=== PATIENT | male | born 1985 | race Caucasian/White ===

== ENCOUNTER 2021-01-10 10:31 | Outpatient (CLI) | payer MEDICAID | END 2021-01-10 10:32 | disposition critical access hospital (66) | LOC: EMS 10:31 | DX: S61.412A Laceration without foreign body of left hand, initial encounter (principal); W29.3XXA Contact with powered garden and outdoor hand tools and machinery, initial encounter | CPT/HCPCS: A0425; A0427; A0999 ==

== ENCOUNTER 2021-01-10 10:52 | Emergency (ER) | payer MEDICAID ==
[2021-01-10] MEDS ORDERED: LIDOCAINE 1% 2 ML VIAL SUBQ STA (11:34)
[2021-01-10] MEDS ORDERED: TETANUS/DIPHTHERIA/PERTUSSIS 0.5 ML SYRINGE IM ONE (11:34)
[2021-01-10] MEDS ORDERED: BUPIVACAINE 0.5% PF 10 ML VIAL SUBQ STA (11:35)
--- NOTE | 2021-01-10 11:38 | ED Physician Documentation ---
PD HPI UPPER EXT INJURY - Stated complaint Stated Complaint: THUMB LACERATION - Chief complaint Chief Complaint: Trauma Ext - History obtained from History obtained from: Patient - History of Present Illness Location: Left, Other (thumb) Type of injury: Laceration Improved by: Nothing Worsened by: Moving, Palpating Associated symptoms: Weakness, Numbness, Tingling, Swelling Contributing factors: Work related - Additonal information Additional information: 35 yo M with no significant pmh BIB EMS after sustaining deep left thumb laceration from chainsaw injury. 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 Denies any other injuries. He is unsure of last td but declines td today. Review of Systems Ten Systems: 10 systems reviewed and negative Skin: reports: Laceration (s) (left thumb) PD PAST MEDICAL HISTORY - Past Medical History Past Medical History: No - Present Medications Home Medications: Ambulatory Orders Medication Instructions Recorded Confirmed HYDROcod/ACETAM 5/325 [Centuria 5/325] 1 - 2 tablet PO Q6H PRN #14 tablet 01/10/21 Ibuprofen [Motrin] 800 mg PO Q8H PRN #30 tablet 01/10/21 cephALEXin [Keflex] 500 mg PO Q6H #28 01/10/21 - Allergies Allergies/Adverse Reactions: Allergies Allergy/AdvReac Type Severity Reaction Status Date / Time No Known Drug Allergies Allergy Verified 01/10/21 11:05 PD ED PE NORMAL - Vitals Vital signs reviewed: Yes - General General: Alert and oriented X 3, No acute distress, Well developed/nourished - HEENT HEENT: Atraumatic, Moist mucous membranes, Pharynx benign - Neck Neck: Supple, no meningeal sign, No JVD - Cardiac Cardiac: RRR, No murmur - Respiratory Respiratory: No respiratory distress, Clear bilaterally - Abdomen Abdomen: Normal bowel sounds, Soft, Non tender, Non distended - Derm Derm: Other (Deep laceration dorsum of left thumb over MCP joint approx 5cm long and about 1cm gaping width. There is obvious tendon lacerations suspect of the extensor and abductor tendons.) - Extremities Extremities: Other (decreased sensation of left distal thumb. thumb warm w/ nl cap refill. He is able to flex slightly, unable to extend or abduct the thumb. ). No: No deformity (left thumb deformity, tenderness, and decreased ROM), No tenderness to palpate, Normal ROM s pain - Neuro Neuro: Alert and oriented X 3, No motor deficit (other than distal left thumb), No sensory deficit (other than distal left thumb), Normal speech Eye Opening: Spontaneous Motor: Obeys Commands Verbal: Oriented GCS Score: 15 - Psych Psych: Normal mood, Normal affect Results - Vitals Vitals: Vital Signs - 24 hr 01/10/21 01/10/21 01/10/21 11:01 11:19 13:20 Temperature 36.2 C L Heart Rate 79 79 78 Respiratory 16 14 14 Rate Blood Pressure 115/70 102/62 130/71 O2 Saturation 95 96 99 Oxygen O2 Source Room air PD MEDICAL DECISION MAKING - ED course Complexity details: reviewed results, re-evaluated patient, d/w patient ED course: This is a 35 yo right handed male who sustained a deep laceration of the left thumb resulting in an open phalanx fracture and tendon laceration. After informed verbal consent obtained I did a digital block of the thumb w/ 6ml of 1% lidocaine plain and 4ml of marcaine with excellent results. I then irrigated the site thoroughly w/ normal saline. There were visible ends of tendons, likely extensor and abductor. Bone was visible. I then closed the wound loosely w/ two 4.0 vicryl deep sutures and 9 nylon 4.0 sutures with good wound approximation. A dressing was placed on the wound and a thumb spica splint applied. I then tried to arrange for a follow up appt w/ ortho/hand at several hand specialists in [place], [place], and [place]. A referral from PCP was required from all locations as this was not a direct transfer. I spoke w/ our [facility] and [place] and we do not do outpt referrals from this ED. The patient does not have a PCP but does sometimes go to a primary care walk-in clinic in [place] therefore plans to go to the clinic today or tomorrow to obtain referral for hand surgery follow up. He was provided w/ CD of his imaging. He was advised that he would need follow up for likely surgical repair of the tendon lacerations in order to restore function to his thumb. He also was advised he had an open fracture which places him at risk of infection. He was given 1gm ceftriaxone IV here and will be discharged w/ keflex x 7 days. He was discharged w/ Centuria as well for pain not relieved by otc ibu/tylenol. Advised to keep elevated and use a cool compress to help w/ pain and swelling. The patient was advised to return to the ER if he developed redness or increased pain at the time or if he was not able to obtain fup w/ hand specialist within 2-3 days. Pt declined his tetanus booster. Departure - Departure Disposition: 01 Home, Self Care Clinical Impression: Open fracture of left thumb, Laceration of thumb, left, with tendon involvement Condition: Good Instructions: ED Laceration Hand, ED Fx Thumb Prescriptions: cephALEXin [Keflex] 500 mg PO Q6H #28 Ibuprofen [Motrin] 800 mg PO Q8H PRN #30 tablet PRN Reason: PAIN &/OR FEVER HYDROcod/ACETAM 5/325 [Centuria 5/325] 1 - 2 tablet PO Q6H PRN #14 tablet PRN Reason: Pain Comments: You have an open fracture of your left thumb and a tendon laceration of your left thumb. The tendon laceration needs to be repaired by a hand specialist within the next several days. We do not have a hand specialist here and I have called several locations, all of which need a referral from your primary care provider. Please call or walk-in to your primary care provider today or tomorrow in order to receive urgent referral to hand specialist. You received antibiotics to help prevent infection and you will need to take these for the next week. The laceration is loosely sutured and the sutures will need to come out within 7-10 days, though if you see a hand specialist they will repair this wound during surgery for your tendon laceration. It is very important to take antibiotics as prescribed and go to the ER right away if you develop hand/thumb redness or swelling or increased pain or fever. I have prescribed some narcotic pain medication for you. Please try ibuprofen first, but you may take the narcotic pain medication if needed. You should not drive or operate heavy machinery if you take this medication. This medication can be habit forming and you should not take it more often than prescribed. Discharge Date/Time: 01/10/21 15:23
--- NOTE | 2021-01-10 12:28 | XRAY Report ---
PROCEDURE: Hand 2 View LT INDICATIONS: deep thumb laceration by chainsaw TECHNIQUE: 2 views of the hand(s) acquired. COMPARISON: None FINDINGS: Bones: Cortical irregularity involving dorsal and lateral cortex of first distal phalangeal base cons istent with slightly minimally displaced comminuted fracture in this area. No other fracture or dislo cation. No suspicious bony lesions. Soft tissues: Laceration over dorsal and lateral aspect of left thumb is seen. No suspicious soft ti ssue calcifications. No gross radiopaque foreign body is seen. IMPRESSION: Comminuted and slightly displaced fracture involving dorsal and lateral aspect of first proximal phal angeal base. No other fracture or dislocation. Soft tissue laceration and base of left thumb. No radi opaque foreign body. Reviewed by: Tu Carpio MD on 01/10/2021 12:26 PM PDT Approved by: Tu Carpio MD on 01/10/2021 12:26 PM PDT Station ID: [id number]
[2021-01-10 13:20] VITALS: BP 130/71
[2021-01-10] MEDS ORDERED: cefTRIAXone 1 GM VIAL IVP STA (13:28)
[2021-01-10] MEDS ORDERED: MORPHINE 2 MG/ML CARPUJECT IVP STA (13:29)
== END 2021-01-10 15:23 | disposition home or self-care (01) ==
LOC: ED 10:52
DX: S62.512B Displaced fracture of proximal phalanx of left thumb, initial encounter for open fracture (principal); S64.32XA Injury of digital nerve of left thumb, initial encounter; W29.3XXA Contact with powered garden and outdoor hand tools and machinery, initial encounter; Y99.0 Civilian activity done for income or pay; Z23 Encounter for immunization
CPT/HCPCS: 12042; 64450

== ENCOUNTER 2022-04-01 21:47 | Emergency (ER) | payer MEDICAID ==
[2022-04-01 22:01] VITALS: BP 158/95
--- NOTE | 2022-04-02 00:50 | XRAY Report ---
PROCEDURE: Chest 1 View X-Ray INDICATIONS: cough TECHNIQUE: One view of the chest was acquired. COMPARISON: None. FINDINGS: Surgical changes and devices: None. Lungs and pleura: No pleural effusions or pneumothorax. Lungs are clear. Mediastinum: Mediastinal contours appear normal. Heart size is normal. Bones and chest wall: No suspicious bony lesions. Overlying soft tissues appear unremarkable. IMPRESSION: 1. No acute cardiopulmonary disease. Reviewed by: Balbir Josue MD on 04/02/2022 12:49 AM [facility] Approved by: Balbir Josue MD on 04/02/2022 12:49 AM [facility] Station ID: [id number]
--- NOTE | 2022-04-02 01:03 | ED Physician Documentation ---
History of Present Illness - Stated complaint Stated Complaint: Bubble in chest - Chief complaint Chief Complaint: General - History obtained from History obtained from: Patient - Additonal information Additional information: The patient comes to the emergency department chief complaint of an episode of feeling as though a bubble came up from his stomach into his throat and was choking him. The patient states that he had been having trouble with reflux every time he ate spicy food, so he took a hiatus from eating spicy food and symptoms got better. However, today went ahead and ate some spicy food and not long after, felt a sensation like liquid and a bubble rising from his stomach into his throat. The patient states he began coughing and that he kept feeling like something was in his throat and choking him. The patient states that his throat still did not feel right while he was driving over here, but now, he feels quite a bit better. The patient denies any shortness of breath. No cough or fevers. This has happened to him before. Review of Systems Ten Systems: 10 systems reviewed and negative Constitutional: reports: Reviewed and negative Eyes: reports: Reviewed and negative Ears: reports: Reviewed and negative Nose: reports: Reviewed and negative Throat: reports: Reviewed and negative Cardiac: reports: Chest pain / pressure Respiratory: reports: Reviewed and negative GI: reports: Reviewed and negative : reports: Reviewed and negative Skin: reports: Reviewed and negative Musculoskeletal: reports: Reviewed and negative Neurologic: reports: Reviewed and negative Psychiatric: reports: Reviewed and negative Endocrine: reports: Reviewed and negative Immunocompromised: reports: Reviewed and negative PD PAST MEDICAL HISTORY - Present Medications Home Medications: Ambulatory Orders Medication Instructions Recorded Confirmed HYDROcod/ACETAM 5/325 [[place] 5/325] 1 - 2 tablet PO Q6H PRN #14 tablet 01/10/21 Ibuprofen [Motrin] 800 mg PO Q8H PRN #30 tablet 01/10/21 cephALEXin [Keflex] 500 mg PO Q6H #28 01/10/21 Famotidine [Pepcid] 20 mg PO BID #60 tablet 04/02/22 - Allergies Allergies/Adverse Reactions: Allergies Allergy/AdvReac Type Severity Reaction Status Date / Time No Known Drug Allergies Allergy Verified 04/01/22 22:01 PD ED PE NORMAL - Vitals Vital signs reviewed: Yes - General General: Alert and oriented X 3, No acute distress, Well developed/nourished - HEENT HEENT: Atraumatic, PERRL, EOMI, Moist mucous membranes - Neck Neck: Supple, no meningeal sign - Cardiac Cardiac: RRR, No murmur, Strong equal pulses - Respiratory Respiratory: No respiratory distress, Clear bilaterally - Abdomen Abdomen: Soft, Non tender, Non distended - Derm Derm: Normal color, Warm and dry, No rash - Extremities Extremities: No deformity, No edema - Neuro Neuro: Alert and oriented X 3 - Psych Psych: Normal mood, Normal affect Results - Vitals Vitals: Vital Signs - 24 hr 04/01/22 21:58 Temperature 36.6 C Heart Rate 86 Respiratory 18 Rate Blood Pressure 158/95 H O2 Saturation 98 Oxygen O2 Source Room air - Rads (name of study) Chest x-ray Radiology: Final report received, EMP read indepedently, See rad report (Linda maier) PD MEDICAL DECISION MAKING - ED course Complexity details: reviewed results, re-evaluated patient, considered differential, d/w patient ED course: I discussed with the patient that his symptoms are most consistent with gastroesophageal reflux. His chest x-ray is negative and the patient looks very good in the ED, and is largely without symptoms. We have discussed avoidance of acidic or spicy foods, as well as coffee, alcohol, or smoking, all of which could make GERD worse. We have discussed the need to follow-up with his primary care physician, should symptoms continue despite dietary modifications. The patient is stable for discharge home at this time. I have prescribed him Pepcid. Departure - Departure Disposition: 01 Home, Self Care Clinical Impression: GERD (gastroesophageal reflux disease) Qualifiers: Esophagitis presence: esophagitis presence not specified Qualified Code(s): K21.9 - Gastro-esophageal reflux disease without esophagitis Condition: Stable Instructions: ED GERD Prescriptions: Famotidine [Pepcid] 20 mg PO BID #60 tablet Comments: There is no evidence of a serious condition causing your symptoms. Your chest x-ray looks good and your heart and lungs are normal on exam. Your symptoms are most consistent with reflux of the stomach contents. In part, this can be caused by eating too much acidic or spicy food. Additionally, things like smoking, coffee/caffeine intake, or alcohol can also loosen the muscle at the top of the stomach that keeps its contents from coming back up. The best thing for you to do is to avoid any foods that especially seem to give you the symptoms. A prescription for some antacids stomach medicine has been electronically transmitted to the [facility] in [place]. You may take this every day as directed to help settle your stomach down as well. Otherwise, please follow-up with your primary care physician for further concerns in this regard. Discharge Date/Time: 04/02/22 01:07
== END 2022-04-02 01:07 | disposition home or self-care (01) ==
LOC: ED 21:47
DX: K21.9 Gastro-esophageal reflux disease without esophagitis (principal)
CPT/HCPCS: 99282; 99283

== ENCOUNTER 2023-12-02 15:00 | Outpatient (CLI) | payer MEDICAID ==
[2023-12-02 21:00] LABS: BASOPHILS # (AUTO) 0.1 10^3/uL (0.0-0.1); BASOPHILS % (AUTO) 0.8 %; EOSINOPHILS # (AUTO) 0.1 10^3/uL (0.0-0.7); EOSINOPHILS % (AUTO) 1.7 %; HCT - HEMATOCRIT 39.3 % (42.0-52.0); HGB - HEMOGLOBIN 12.8 g/dL (14.0-18.0); LYMPHOCYTES # (AUTO) 1.9 10^3/uL (1.5-3.5); LYMPHOCYTES % (AUTO) 26.3 %; MEAN CORPUSCULAR HEMOGLOBIN 28.6 pg (27.0-31.0); MEAN CORPUSCULAR HGB CONC 32.6 g/dL (32.0-36.0); MEAN CORPUSCULAR VOLUME 87.9 fL (80.0-94.0); MEAN PLATELET VOLUME 11.9 fL (7.4-11.4); MONOCYTES # (AUTO) 0.4 10^3/uL (0.0-1.0); MONOCYTES % (AUTO) 5.2 %; NEUTROPHILS # (AUTO) 4.6 10^3/uL (1.5-6.6); NEUTROPHILS % (AUTO) 65.7 %; PLT - PLATELET COUNT 197 10^3/uL (130-450); RED BLOOD COUNT 4.47 10^6/uL (4.70-6.10); RED CELL DISTRIBUTION WIDTH 13.3 % (12.0-15.0); WHITE BLOOD COUNT 7.1 x10^3/uL (4.8-10.8)
[2023-12-02 21:10] LABS: ALBUMIN 4.5 g/dL (3.2-5.5); ALBUMIN/GLOBULIN RATIO 1.7 (1.0-2.2); BILIRUBIN,TOTAL 1.4 mg/dL (0.2-1.0); CALCIUM 9.7 mg/dL (8.5-10.3); CREATININE 0.9 mg/dL (0.6-1.3); POTASSIUM 4.2 mmol/L (3.5-4.5); TOTAL PROTEIN 7.1 g/dL (6.4-8.9)
[2023-12-02 21:25] LABS: THYROID STIMULATING HORMONE 1.78 uIU/mL (0.34-5.60)
== END 2023-12-02 15:15 | disposition home or self-care (01) ==
LOC: LAB.N 15:00
PROVIDERS: ATTEND Family Medicine
DX: R55 Syncope and collapse (principal); R53.1 Weakness
CPT/HCPCS: 36415; 80053; 84443; 85025